=== PATIENT | female | born 1995 | race Caucasian/White ===

== ENCOUNTER 2021-03-24 15:54 | Emergency (ER) | payer OTHER, SELFPAY ==
[2021-03-24 18:38] VITALS: BP 116/74; PULSE 92; RESP 18; TEMP 36.6; O2SAT 100
--- NOTE | 2021-03-24 18:44 | ED.SKABFB ---
HPI - Skin/Abscess/Foreign Bdy General Chief complaint: Skin/Abscess/Foreign Body Stated complaint: Cyst on tail bone Time Seen by Provider: 03/24/21 18:40 Source: patient Mode of arrival: ambulatory Limitations: no limitations History of Present Illness HPI narrative: Patient comes in with what looks like pilonidal cyst that needs to be drained which is red, warm, and tender to touch. Pain has been severe, sharp, ongoing, and has not responded to OTC medications. It has been getting progressively more tender over the past few days. She comes in requesting an antibiotic. complaint: abscess/boil Onset (ago): day(s) Location: buttocks Severity: severe Quality: sharp Pain Consistency: constant Relieving factors: rest Exacerbating factors: other (sitting) Associated symptoms: denies other symptoms Treatments prior to arrival: attempted to drain pus at home Related Data Allergies Allergy/AdvReac Type Severity Reaction Status Date / Time No Known Allergies Allergy Unverified 04/26/18 13:34 Review of Systems Constitutional: Constitutional: Reports no additional constitutional complaints Eyes: Eyes: Reports no additional eye complaints ENT: Reports system reviewed and no additional complaints, except as documented Cardiovascular: Cardiovascular: Reports no additional cardiovascular complaints Respiratory: Respiratory: Reports no additional respiratory complaints Gastrointestinal: Gastrointestinal: Reports no additional gastrointestinal complaints Genitourinary: Genitourinary: Reports no additional female genitourinary complaints Musculoskeletal: Musculoskeletal: Reports no additional musculoskeletal complaints Integumentary/Breasts: Skin/Breast: Reports system reviewed and no additional complaints, except as docu Neurologic: Reports system reviewed and no additional complaints, except as documented Psychiatric: Psychiatric: Reports no additional psychiatric complaints Endocrine: Endocrine: Reports no additional endocrine complaints Hematologic/Lymphatic: Hematologic/Lymphatic: Reports no additional hematologic/lymphatic complaints Allergic/Immunologic: Allergic/Immunologic: Reports no additional allergic/immunologic complaints [facility] Past Medical History Medical History H/O drainage of abscess Pilonidal cyst Family History Family History Mother Hypertension Family history of diabetes mellitus in first degree relative Grandparent Diabetes mellitus Father Family history of diabetes mellitus in first degree relative Other Family history of coronary artery disease Social History Social History Smoking status: Smoker, status unknown Alcohol intake: never Exam Const: General: no acute distress Orientation/consciousness: patient oriented x3 HENMT: Head: normal to inspection Ears: external ears normal General nose exam: Normal external nose present Mouth: Yes Normal oral and palatal mucosa present Throat: posterior oropharynx normal Eyes: Conjunctivae: conjunctivae normal Neck: Neck: normal visual inspection Chest: Chest palpation & inspection: normal inspection of the chest Resp: Effort & Inspection: normal respiratory effort Auscultation: clear to auscultation bilaterally Cardio: Rate: regular rate Rhythm: regular rhythm GI: GI Palp: Yes Soft to palpation (nontender) Back/Spine/Pelvis: Back: no CVA tenderness Skin: General skin exam: normal color Other: Abscess at top of buttocks, which appears to be a pilonidal cyst. This appears to have a cellulitis around it and needs to be drained. Neuro: General: patient oriented x3 and moves all extremities Extrem: General: normal to inspection Psych: Appearance: grossly normal Mental Status: mental status grossly normal Thought content: Yes Normal thought content present Cour
== END 2021-03-24 18:58 | disposition home or self-care (01) ==
PROVIDERS: Emergency Provider Emergency Medicine
DX: L03.317 Cellulitis of buttock (principal); L02.31 Cutaneous abscess of buttock
CPT/HCPCS: 99283

== ENCOUNTER 2021-03-29 16:10 | Emergency (ER) | payer OTHER, SELFPAY ==
--- NOTE | 2021-03-29 16:33 | PC.NURSE ---
PT NOT IN WAITING ROOM.
--- NOTE | 2021-03-29 16:49 | PC.NURSE ---
PT NOT IN WAITING ROOM.
[2021-03-29 17:14] VITALS: BP 111/73; PULSE 79; RESP 18; TEMP 36.2; O2SAT 97
[2021-03-29] MEDS: LIDO 1%/EPINEPHRINE 1:100,000 20 ML VIAL 5 ML INFILTRATE (17:31)
--- NOTE | 2021-03-29 17:39 | ED.SKABFB ---
HPI - Skin/Abscess/Foreign Bdy General Source: patient Mode of arrival: ambulatory Limitations: no limitations History of Present Illness HPI narrative: This young woman comes in with complaints of pain in her previously diagnosed infected pilonidal cyst area at the apex of her buttocks. She has had continuing pain in her buttocks there for the past several days since she was discharged after refusing to allow me to drain the abscess when she was last seen. It sounds like the abscess partially drained, and then stopped draining. She comes in because of sharp, severe ongoing pain at that site for the last several days, not relieved by NSAIDs at home or by measures such as hot baths. complaint: abscess/boil Onset (ago): day(s) Tetanus up to date: yes Location: buttocks Severity: similar to previous episodes Quality: stabbing Pain Consistency: constant Relieving factors: none Exacerbating factors: movement Associated symptoms: denies other symptoms Treatments prior to arrival: attempted to drain pus at home Related Data Allergies Allergy/AdvReac Type Severity Reaction Status Date / Time No Known Allergies Allergy Unverified 04/26/18 13:34 Review of Systems Constitutional: Constitutional: Reports no additional constitutional complaints Eyes: Eyes: Reports no additional eye complaints ENT: Reports system reviewed and no additional complaints, except as documented Cardiovascular: Cardiovascular: Reports no additional cardiovascular complaints Respiratory: Respiratory: Reports no additional respiratory complaints Gastrointestinal: Gastrointestinal: Reports no additional gastrointestinal complaints Genitourinary: Genitourinary: Reports no additional female genitourinary complaints Musculoskeletal: Musculoskeletal: Reports no additional musculoskeletal complaints Integumentary/Breasts: Skin/Breast: Reports system reviewed and no additional complaints, except as docu Neurologic: Reports system reviewed and no additional complaints, except as documented Psychiatric: Psychiatric: Reports no additional psychiatric complaints Endocrine: Endocrine: Reports no additional endocrine complaints Hematologic/Lymphatic: Hematologic/Lymphatic: Reports no additional hematologic/lymphatic complaints Allergic/Immunologic: Allergic/Immunologic: Reports no additional allergic/immunologic complaints [facility] Past Medical History Medical History H/O drainage of abscess Pilonidal cyst Family History Family History Mother Hypertension Family history of diabetes mellitus in first degree relative Grandparent Diabetes mellitus Father Family history of diabetes mellitus in first degree relative Other Family history of coronary artery disease Social History Social History (Updated 03/29/21 @ 23:07 by Senthil Jasso MD) Smoking status: Current every day smoker Tobacco type: cigarettes Alcohol intake: never Exam Const: General: no acute distress Orientation/consciousness: patient oriented x3 HENMT: Head: normal to inspection Ears: external ears normal General nose exam: Normal external nose present Mouth: Yes Normal oral and palatal mucosa present Throat: posterior oropharynx normal Eyes: Conjunctivae: conjunctivae normal Neck: Neck: normal visual inspection Chest: Chest palpation & inspection: normal inspection of the chest Resp: Effort & Inspection: normal respiratory effort Auscultation: clear to auscultation bilaterally Cardio: Rate: regular rate Rhythm: regular rhythm GI: Auscultation: normal bowel sounds (soft non tender) Skin: General skin exam: normal color Other: she has what appears to be infected pilonidal cyst full of purulent fluid at apex of buttocks. cyst ia about the size of silver dollar in total surface area. Neuro: General: patient oriented x3, moves all extremities and no mening
[2021-03-29] MEDS: cefTRIAXone 1 GM VIAL IM (17:45)
== END 2021-03-29 18:06 | disposition home or self-care (01) ==
PROVIDERS: Emergency Provider Emergency Medicine
DX: L02.31 Cutaneous abscess of buttock (principal)
CPT/HCPCS: 10080; 96372; 99283; J0696

== ENCOUNTER 2021-06-17 10:18 | Emergency (ER) | payer OTHER, SELFPAY ==
[2021-06-17 11:10] VITALS: BP 95/62; PULSE 93; RESP 16; TEMP 36.5; O2SAT 99
--- NOTE | 2021-06-17 11:23 | ED.WOUNDLAC ---
HPI - Wound/Laceration General Chief Complaint: Skin/Abscess/Foreign Body Stated Complaint: cyst on rt thigh Source: patient Mode of arrival: ambulatory History of Present Illness HPI narrative: this is a 25-year-old female that presents with an abscess indurated nonfluctuant painful red warm to touch with no drainage on the right upper inner thigh started 3 to 4 days ago has had these in the past the patient currently has no fever or chills no shortness of breath no nausea vomiting. Onset (ago): day(s) Location: other ( right inner thigh) Extremity Location: Right: thigh ( firm abscess) Related Data Allergies Allergy/AdvReac Type Severity Reaction Status Date / Time No Known Allergies Allergy Unverified 04/26/18 13:34 Review of Systems Review of Systems: All systems reviewed & are unremarkable except as noted in HPI and below PMFSH Past Medical History Medical History H/O drainage of abscess Pilonidal cyst Family History Family History Mother Hypertension Family history of diabetes mellitus in first degree relative Grandparent Diabetes mellitus Father Family history of diabetes mellitus in first degree relative Other Family history of coronary artery disease Social History Social History Smoking status: Current every day smoker Tobacco type: cigarettes Alcohol intake: never Exam Const: General: no acute distress Orientation/consciousness: patient oriented x3 HENMT: Head: normal to inspection Eyes: Conjunctivae: conjunctivae normal Pupils: Equal, round and reactive pupils present Neck: Neck: normal visual inspection, no lymphadenopathy and no meningeal signs Chest: Chest palpation & inspection: normal inspection of the chest Resp: Effort & Inspection: normal respiratory effort Auscultation: clear to auscultation bilaterally Cardio: Rate: regular rate Rhythm: regular rhythm GI: GI Palp: Yes Soft to palpation Back/Spine/Pelvis: Back: no CVA tenderness Skin: General skin exam: normal color Other: Abscess indurated approximately 2cm in diameter warm red tender with no drainage nonfluctuant. Neuro: General: patient oriented x3 and moves all extremities Extrem: General: normal to inspection and no pedal edema Psych: Mental Status: mental status grossly normal Affect: normal affect Attitude: cooperative Course Course Emergency Course: Patient advised to use warm compress, ibuprofen and will send antibiotic to her pharmacy. Vital Signs Vital signs: Vital Signs Temperature 36.5 C 06/17/21 11:10 Pulse Rate 93 06/17/21 11:10 Respiratory Rate 16 06/17/21 11:10 Blood Pressure 95/62 L 06/17/21 11:10 Pulse Oximetry 99 06/17/21 11:10 Temperature 36.5 C 06/17/21 11:10 Pulse Rate 93 06/17/21 11:10 Respiratory Rate 16 06/17/21 11:10 Blood Pressure 95/62 L 06/17/21 11:10 Pulse Oximetry 99 06/17/21 11:10 Critical Care Time Critical Care Time Critical Care Time: No Discharge Plan Discharge Clinical Impression: Abscess of skin or subcutaneous tissue Qualifiers: Site of cutaneous abscess: other site Qualified Code(s): L02.818 - Cutaneous abscess of other sites Patient Disposition: Home, Self-Care Condition: Stable Instructions: Antibiotic Form, Abscess (ED) Additional Instructions: Take medicine as prescribed, can use warm compress to affected area along with ibuprofen as needed for pain and inflammation Prescriptions: New amoxicillin-pot clavulanate [Augmentin] 875-125 mg tablet 1 tablet PO Q12H Qty: 20 RF: 0 Follow-up/Referrals: UNKNOWN,DOCTOR [Primary Care Provider] - Time of Disposition: :
[2021-06-17 11:38] VITALS: PULSE 93; RESP 16
== END 2021-06-17 11:39 | disposition home or self-care (01) ==
PROVIDERS: Emergency Provider Emergency Medicine
DX: L02.818 Cutaneous abscess of other sites (principal)
CPT/HCPCS: 99283

== ENCOUNTER 2021-07-08 14:23 | Outpatient (CLI) | payer OTHER, SELFPAY ==
[2021-07-08 15:21] LABS: SARS-CoV-2 Ag Negative (Negative)
[2021-07-08 16:15] LABS: SARS-CoV-2 RNA PCR Negative (Negative)
== END 2021-07-08 14:24 | disposition home or self-care (01) ==
LOC: CHSLAB 14:27
PROVIDERS: PCP Nurse Practitioner Psychiatric/Mental Health; Visit Provider Nurse Practitioner Psychiatric/Mental Health
DX: Z20.822 Contact with and (suspected) exposure to COVID-19 (principal)
CPT/HCPCS: 87426; C9803; U0003; U0005

== ENCOUNTER 2022-01-08 11:16 | Outpatient (CLI) | payer OTHER, SELFPAY ==
[2022-01-08 12:10] LABS: Basophils Percent Auto 0.3 % (0.2-1.2); Eosinophils Absolute Auto 0.1 K/mm3 (0-0.3); Eosinophils Percent Auto 0.5 % (0-4.4); Hematocrit 31.8 % (37.0-47.0); Immature Granulocyte Absolute 0.08 K/mm3 (0.00-0.031); Immature Granulocyte Percent A 0.7 % (0-0.5); Lymphocytes Absolute Auto 1.87 K/mm3 (0.9-3.2); Lymphocytes Percent Auto 17.3 % (18.3-44.2); Mean Corpuscular HGB Conc 31.4 g/dl (32-36); Mean Corpuscular Hemoglobin 27.7 pg (26-34); Mean Corpuscular Volume 88.1 fl (80-100); Mean Platelet Volume 9.6 fl (7.4-10.4); Monocytes Absolute Auto 0.6 K/mm3 (0.1-0.6); Monocytes Percent Auto 5.5 % (2.6-8.5); Neutrophils Absolute Auto 8.2 K/mm3 (1.3-6.7); Neutrophils Percent Auto 75.7 % (45.5-73.1); Platelet Count Result 324 k/mm3 (150-375); Red Blood Count 3.61 M/mm3 (4.2-5.4); Red Cell Distribution Width 13.1 % (11.5-14.5); White Blood Count 10.8 K/mm3 (4.5-10.0)
[2022-01-08 13:13] LABS: HIV 1/2 Ab P24 Ag Result Negative (Negative)
== END 2022-01-08 11:17 | disposition home or self-care (01) ==
LOC: ANHLAB 11:20
PROVIDERS: Visit Provider Obstetrics & Gynecology
DX: Z34.90 Encounter for supervision of normal pregnancy, unspecified, unspecified trimester (principal); Z3A.00 Weeks of gestation of pregnancy not specified
CPT/HCPCS: 36415; 85025; 86703; G0432

== ENCOUNTER 2022-03-11 09:26 | Inpatient (IN) | payer OTHER, SELFPAY ==
[2022-03-11] VITALS (52 sets, daily range): BP systolic 78–109; BP diastolic 40–75; PULSE 25–98; RESP 12–18; TEMP 36.1–36.4; O2SAT 80–100; BMI 36.1
--- NOTE | 2022-03-11 08:52 | PM.IMHP ---
H&P: HPI History of Present Illness Date/Time: 03/11/22 08:52 26-year-old 1 para 1001 female at 39 weeks presents for repeat delivery. Prior term low-transverse . records are on the chart and she has had uncomplicated care. We also have discussed tubal ligation and she declines. Chief Complaint: Review of Systems Review of Systems: All systems reviewed & are unremarkable except as noted in HPI and below PMFSH Past Medical History Medical History H/O drainage of abscess HSV-2 infection Pilonidal cyst Surgical History Surgical History Delivery by section (06/28/19) primary c/s History of placement of ear tubes (~10/19/97) Family History Family History Mother Hypertension Family history of diabetes mellitus in first degree relative Grandparent Diabetes mellitus Father Family history of diabetes mellitus in first degree relative Other Family history of coronary artery disease Social History Social History Smoking status: Current every day smoker Tobacco type: cigarettes Alcohol intake: never Meds Home Medications and Allergies Home Medications Medication Instructions Recorded Confirmed Type vit with calcium-iron tablet PO 11/05/21 02/27/22 History fum-folic acid 27 mg-1 mg tablet valacyclovir 500 mg tablet 500 mg PO DAILY 11/05/21 02/27/22 History (Valtrex) Allergies Allergy/AdvReac Type Severity Reaction Status Date / Time No Known Allergies Allergy Verified 02/27/22 08:36 Exam Const: General: cooperative, healthy appearing and comfortable Resp: Effort & Inspection: normal respiratory effort Auscultation: clear to auscultation bilaterally Cardio: Rate: regular rate Rhythm: regular rhythm GI: Inspection: normal to inspection ( Uterus enlarged to 40cm with heart tones in the 140s.) Auscultation: normal bowel sounds : External Female Exam: normal external appearance Bimanual exam- vagina & uterus: enlarged Assessment and Plan Assessment and plan (1) 39 weeks gestation of : Code(s): Z3A.39 - 39 weeks gestation of Status: Acute (2) Previous delivery affecting : Code(s): O34.219 - Maternal care for unspecified type scar from previous delivery Status: Acute Assessment and Plan: proceed with repeat delivery.
--- NOTE | 2022-03-11 08:57 | WPDHPUPDATE1 ---
History and Physical Update Update Date/Time: 03/11/22 08:57 History and Physical has been reviewed, including an updated exam of the patient. There are NO changes in the patient's condition. Risks, benefits, and alternatives have been discussed and questions answered. Patient agrees to proceed with procedure.
[2022-03-11 10:14] LABS: Basophils Percent Auto 0.3 % (0.2-1.2); Eosinophils Absolute Auto 0.1 K/mm3 (0-0.3); Eosinophils Percent Auto 0.8 % (0-4.4); Hematocrit 32.8 % (37.0-47.0); Hemoglobin 9.7 g/dL (12.0-15.0); Immature Granulocyte Percent A 0.9 % (0-0.5); Lymphocytes Absolute Auto 1.81 K/mm3 (0.9-3.2); Lymphocytes Percent Auto 15.7 % (18.3-44.2); Mean Corpuscular HGB Conc 29.6 g/dl (32-36); Mean Corpuscular Hemoglobin 23.7 pg (26-34); Mean Corpuscular Volume 80.2 fl (80-100); Mean Platelet Volume 9.4 fl (7.4-10.4); Monocytes Absolute Auto 0.7 K/mm3 (0.1-0.6); Monocytes Percent Auto 6.1 % (2.6-8.5); Neutrophils Absolute Auto 8.8 K/mm3 (1.3-6.7); Neutrophils Percent Auto 76.2 % (45.5-73.1); Platelet Count Result 332 k/mm3 (150-375); Red Blood Count 4.09 M/mm3 (4.2-5.4); Red Cell Distribution Width 14.5 % (11.5-14.5); White Blood Count 11.6 K/mm3 (4.5-10.0)
[2022-03-11] MEDS: LACTATED RINGERS 1,000 ML 125 ML IV CONT ×2 (10:15→10:49)
--- NOTE | 2022-03-11 10:24 | LDADM ---
This patient, Katherin Hernandez, was admitted to Labor/Delivery/Recovery 119 on 03/11/22 at 09:26. Plans for labor, pain management and were discussed with patient. Patient/family oriented to hospital policies and general routines including ID bracelet, bed and alarms, visiting hours, pain management, procedures, bathroom and other care routines, personal items, smoking policy, room service/diet and guest tray routines, security routines, and visiting hours. Patient/Family are encouraged to report perceived risks to care and to ask questions if they do not understand what they are told or what they should do. See OBIX for further documentation.
--- NOTE | 2022-03-11 10:47 | WPDANESEPPF ---
Anes - Initial Pre Proc Eval Procedure: Operation Date: 03/11/22 12:00 Proposed Procedures p Repeat Section - Trey Acosta MD Date/Time: 03/11/22 10:47 Surgeon: Trey Acosta MD Pre Op Diagnosis: R C/S Patient Data Age: 26 Gender: F Height: 1.57 m Weight: 89.5 kg Last Vital Signs Pulse 87 03/11/22 10:30 BP 109/75 03/11/22 10:30 O2 Del Method Room Air 03/11/22 10:19 Allergies Allergy/AdvReac Type Severity Reaction Status Date / Time No Known Allergies Allergy Verified 02/27/22 08:36 Home Medications Medication Instructions Recorded Confirmed Type vit with calcium-iron 1 tablet PO DAILY 11/05/21 03/11/22 History fum-folic acid 27 mg-1 mg tablet valacyclovir 500 mg tablet 500 mg PO DAILY 11/05/21 03/11/22 History (Valtrex) Laboratory Tests 03/11/22 03/11/22 10:07 10:07 WBC 11.6 K/mm3 H K/mm3 (4.5-10.0) RBC 4.09 M/mm3 L M/mm3 (4.2-5.4) Hgb 9.7 g/dL L g/dL (12.0-15.0) Hct 32.8 % L % (37.0-47.0) MCV 80.2 fl fl (80-100) MCH 23.7 pg L pg (26-34) MCHC 29.6 g/dl L g/dl (32-36) RDW 14.5 % % (11.5-14.5) Plt Count 332 k/mm3 k/mm3 (150-375) MPV 9.4 fl fl (7.4-10.4) Immature Gran % (Auto) 0.9 % H % (0-0.5) Neut % (Auto) 76.2 % H % (45.5-73.1) Lymph % (Auto) 15.7 % L % (18.3-44.2) Beauregard % (Auto) 6.1 % % (2.6-8.5) Eos % (Auto) 0.8 % % (0-4.4) Baso % (Auto) 0.3 % % (0.2-1.2) Lymph # (Auto) 1.81 K/mm3 K/mm3 (0.9-3.2) Beauregard # (Auto) 0.7 K/mm3 H K/mm3 (0.1-0.6) Eos # (Auto) 0.1 K/mm3 K/mm3 (0-0.3) Baso # (Auto) 0.0 K/mm3 K/mm3 (0.0-0.1) Abs Immat Gran (auto) 0.10 K/mm3 H K/mm3 (0.00-0.031) Absolute Neuts (auto) 8.8 K/mm3 H K/mm3 (1.3-6.7) Absolute Nucleated RBC 0.0 K/mm3 K/mm3 (0.0-0.012) Nucleated RBC % 0.0 % % (0.0-0.2) RPR Pending Patient hx anesthesia problems: none Family hx anesthesia problems: none Results Review: All pre-operative results and documents have been reviewed as part of the pre-operative evaluation. [facility] Past Medical History Medical History H/O drainage of abscess HSV-2 infection Pilonidal cyst Surgical History Surgical History Delivery by section (06/28/19) primary c/s History of placement of ear tubes (~10/19/97) Family History Family History Mother Hypertension Family history of diabetes mellitus in first degree relative Grandparent Diabetes mellitus Father Family history of diabetes mellitus in first degree relative Other Family history of coronary artery disease Social History Social History Smoking packs per day: 0.5 Smoking cigarettes per day: 10.0 Years smoked: 15 Smoking pack-years: 7.50 Smoking status: Former smoker Tobacco type: cigarettes Second hand tobacco smoke exposure: Yes Alcohol intake: never Substance use: current Spiritual care concerns: No Anes - Eval Final PreProcedure Day of Procedure 03/11/22 10:47 Patient weight: obese Heart: regular rate and rhythm Lungs: clear to auscultation and normal air movement Airway: Mallampati scale class II Neurological: alert and oriented Last oral intake: >/= 8 hours ASA classification: II Emergent: no Anesthetic plan: proceed Anesthesia type and monitoring: regional spinal and standard monitoring Results Review: All pre-operative results and documents have been reviewed as part of the pre-operative evaluation. Informed Consent: The patient's anesthetic plan and its attendant risks and benefits were discussed with the patient/family/POA. Questions were solicited and ans
[2022-03-11] MEDS: FAMOTIDINE 20 MG/2 ML VIAL IV PUSH (11:15)
[2022-03-11] MEDS: METOCLOPRAMIDE HCL INJ 10 MG/2 ML VIAL IV PUSH (11:17)
[2022-03-11 11:23] LABS: Amphetamine Screen Urine Negative (Negative); Barbiturate Screen Urine Negative (Negative); Benzodiazepines Screen Urine Negative (Negative); Cannabinoid Screen Urine Positive (Negative); Cocaine Screen Urine Negative (Negative); Methadone Screen Urine Negative (Negative); Opiate Screen Urine Negative (Negative); Phencyclidine Screen Urine Negative (Negative)
[2022-03-11] MEDS: ceFAZolin 2 GM/D5W 50 ML 2 GM/50 ML BAG IVPB (11:23)
--- NOTE | 2022-03-11 12:08 | P.PCNOB_ITS ---
OB - Delivery Note Procedure Procedure: Procedures Operation Date: 03/11/22 12:00 <No data on this case meets the specified criteria> Events: Previous Delivery Prior to decision for section, ACOG/SMFM labor guidelines were considered and discussed with the patient and staff. Decision made to proceed with the section.: No Specimen: No Quantitative Blood Loss (ml): 445 Anesthesia type: Spinal Complications: None Narrative: Patient prepped and draped in usual manner for this procedure. Pfannenstiel incision was carried down to the fascia which was then extended bilaterally the of the skin incision. Superiorly and inferiorly dissected away from the rectus muscles and the peritoneum was readily entered. Bladder flap was developed and the uterus was scored with clear fluid noted vertex was delivered section naso- oropharynx rest baby was delivered. Cord clamped and cut and the placenta was removed manually. The uterus was cleared of membranes and clots and closed using 0 Monocryl in running interlocking manner from the right of midline and the rest of the incision was also approximated 0 Monocryl suture with good hemostasis noted. Uterus could not be exteriorized due to adhesions but was not necessary to adequately close the uterus. All subfascial tissue was noted be hemostatic the fascia was approximated using 0 Vicryl from the left angle midline and the right angle to midline good approximation and hemostasis noted. Subcutaneous tissue was approximated 0 plain suture and alexander were then used to approximate the skin edges. Past postoperative condition of mother and baby were both excellent. Baby Weeks of gestation at delivery: 39 Infant gender: Male Weight (pounds): 9 Weight (ounces): 5 score one minute: 9 score five minutes: 9 AMG Delivery Billing Delivery Delivery: Delivery Charge
[2022-03-11] MEDS: KETOROLAC 30 MG/ML VIAL (*BKC) 15 MG IV PUSH (12:46)
[2022-03-11] MEDS: OXYTOCIN 30 UNITS/NS 500 ML 30 UNITS/500 ML BAG 125 UNITS IV CONT (12:48)
[2022-03-11] MEDS: DEXTROSE 5%/0.45% SOD CHL 1,000 ML 125 ML IV CONT (16:40)
[2022-03-11] MEDS: ONDANSETRON INJ 4 MG/2 ML VIAL IV PUSH (17:17)
[2022-03-11] MEDS: KETOROLAC 30 MG/ML VIAL (*BKC) IV PUSH (17:17)
[2022-03-12 04:00] VITALS: BP 102/62; PULSE 71; RESP 16; TEMP 36.2
[2022-03-12] MEDS: IBUPROFEN 600 MG TABLET PO ×2 (04:09→11:36)
[2022-03-12] MEDS: HYDROcodone/acetaminophen (*CRX) 5-325 MG TABLET 1 TAB PO ×2 (04:09→11:36)
[2022-03-12 05:08] LABS: Basophils Absolute Auto 0.1 K/mm3 (0.0-0.1); Basophils Percent Auto 0.4 % (0.2-1.2); Eosinophils Absolute Auto 0.1 K/mm3 (0-0.3); Eosinophils Percent Auto 0.4 % (0-4.4); Hematocrit 27.6 % (37.0-47.0); Hemoglobin 7.8 g/dL (12.0-15.0); Immature Granulocyte Percent A 0.7 % (0-0.5); Lymphocytes Absolute Auto 2.11 K/mm3 (0.9-3.2); Mean Corpuscular HGB Conc 28.3 g/dl (32-36); Mean Corpuscular Hemoglobin 23.9 pg (26-34); Mean Corpuscular Volume 84.4 fl (80-100); Mean Platelet Volume 10.2 fl (7.4-10.4); Monocytes Absolute Auto 1.2 K/mm3 (0.1-0.6); Monocytes Percent Auto 8.3 % (2.6-8.5); Neutrophils Absolute Auto 10.6 K/mm3 (1.3-6.7); Neutrophils Percent Auto 75.2 % (45.5-73.1); Platelet Count Result 312 k/mm3 (150-375); Red Blood Count 3.27 M/mm3 (4.2-5.4); Red Cell Distribution Width 14.6 % (11.5-14.5); White Blood Count 14.1 K/mm3 (4.5-10.0)
--- NOTE | 2022-03-12 07:39 | WPDANLDPN2 ---
Anes-Prog Note L&D Date/Time: 03/12/22 07:39 Comfortable throughout: section Neuraxial method: spinal Epidural/Spinal procedure site: clean & non-tender Neuro status: Neuro function grossly intact. Cardiovascular status: normal Respiratory status: normal Airway patency: baseline Mental status: baseline Post-Op hydration status: normal Vital Signs: Last Vital Signs Temp 97.2 F L 03/12/22 04:00 Pulse 71 03/12/22 04:00 Resp 16 03/12/22 04:00 BP 102/62 03/12/22 04:00 Pulse Ox 100 03/11/22 15:00 O2 Del Method Room Air 03/11/22 14:45 Pain score (VAS): 10/28 I/O: Intake & Output 03/11/22 03/11/22 03/12/22 15:59 23:59 07:59 Intake Total 1200 950 300 Output Total 645 200 600 Balance 555 750 -300 Patient feedback: Patient satisfied with anesthetic care.
--- NOTE | 2022-03-12 07:42 | WPDANLDNPN2 ---
Anes-Prog Note L&D-Neuraxial Date/Time: 03/12/22 07:42 Neuraxial medications: intrathecal PF morphine Opiod-related complaints: none Patient feedback: Patient satisfied with post-operative pain management.
[2022-03-12 08:00] VITALS: PULSE 84; RESP 18; O2SAT 100
[2022-03-12] MEDS: POLYSACCHARIDE IRON COMPLEX 150 MG CAPSULE PO ×2 (08:07→17:02)
[2022-03-12] MEDS: DOCUSATE SODIUM 100 MG CAPSULE PO ×2 (08:07→17:02)
[2022-03-12] MEDS: SIMETHICONE 80 MG TAB.CHEW PO ×3 (08:07→17:02)
[2022-03-12] MEDS: MULTIVIT/MIN/PREN/FOL AC/IRON TABLET 1 TAB PO (08:07)
[2022-03-12] MEDS: HYDROcodone/acetaminophen (*CRX) 10-325 MG TABLET 1 TAB PO ×3 (08:08→20:31)
[2022-03-12 08:10] VITALS: BP 102/63; PULSE 84; RESP 18; TEMP 36.5; O2SAT 100
--- NOTE | 2022-03-12 10:52 | PM.OBDSVD ---
DS: Admitting Diagnosis Discharge Date 03/13/2022 Admitting Diagnosis OB - DS: Summary OB Procedures : None OB Procedures Intrapartum: OB Procedures: : None Peripartum Data Procedures: Procedures Operation Date: 03/11/22 12:00 Actual Procedure Side Surgeon p Section Trey Acosta MD Time Spent with Patient Time attestation: Total time spent providing and/or coordinating discharge services: DS: Data Data Completed and Pending Labs on day of discharge: Labs from last 24 hours 03/12/22 03/11/22 03/11/22 04:07 10:54 10:07 WBC 14.1 H RBC 3.27 L Hgb 7.8 L Hct 27.6 L MCV 84.4 D MCH 23.9 L MCHC 28.3 L RDW 14.6 H Plt Count 312 MPV 10.2 Immature Gran % (Auto) 0.7 H Neut % (Auto) 75.2 H Lymph % (Auto) 15.0 L Kaufman % (Auto) 8.3 Eos % (Auto) 0.4 Baso % (Auto) 0.4 Lymph # (Auto) 2.11 Kaufman # (Auto) 1.2 H Eos # (Auto) 0.1 Baso # (Auto) 0.1 Abs Immat Gran (auto) 0.10 H Absolute Neuts (auto) 10.6 H Absolute Nucleated RBC 0.0 Nucleated RBC % 0.0 Urine Opiates Screen Negative Urine Methadone Screen Negative Ur Barbiturates Screen Negative Ur Phencyclidine Scrn Negative Ur Amphetamine Screen Negative U Benzodiazepines Scrn Negative Urine Cocaine Screen Negative U Cannabinoids Screen Positive A Blood Type A Positive Antibody Screen Negative Discharge Plan Discharge Discharging Clinician: Trey Acosta Patient Disposition: Home, Self-Care Activity: as tolerated Diet: as tolerated Wound Care Instructions: incision open to air Patient Instructions: Antibiotic Form Stand Alone Forms: General Discharge Information Follow-up/Referrals: Trey Acosta MD [Physician] - 3 Weeks Discharge Medications: New hydrocodone-acetaminophen 5-325 mg Tablet 1 tablet PO Q3H PRN (Reason: Moderate Pain (4-6)) Qty: 20 0RF ibuprofen 600 mg Tablet 600 mg PO Q6H PRN (Reason: Cramping) Qty: 30 0RF Continued valacyclovir [Valtrex] 500 mg tablet 500 mg PO DAILY vit-iron fum-folic ac 27-1 mg tablet 1 tablet PO DAILY Date of admission: 03/11/22 09:26 Primary Care Provider: UNKNOWN,DOCTOR Admitting Provider: Trey Acosta Attending physician on admission: Trey Acosta Condition: Stable
[2022-03-12 14:32] VITALS: PULSE 84; RESP 18; O2SAT 100
[2022-03-12 14:32] LABS: Rapid Plasma Reagin Non-Reactive (NonReactive)
--- NOTE | 2022-03-12 15:30 | PC.NURSE ---
[id number] Introductions were made, then consulted with patient to assess needs related to . Mother led the conversation with her experience feeding her so far and states she is independently but feels baby isn't satisfied , so she supplemented with formula. is not in the room at this time. Mother states she is part of the WIC program and will get formula. Primary RN comes into the room with and states is very sleepy . Infant is post circumcision and is sleepy. Dr. Hill visited while RN was in the room and educated mother on the risk of using marijuana and . Mother business loan processor will call for assistance with . 1315 - is in the open crib in the room with the parents. Parents are getting ready to eat. Mother voiced she will call when it is time to feed infant. Mother states she is latched infant on her own for 5 min on each side and did not call due to infant wasn't interested. Reviewed responsive feeding and how to watch for early feeding signs, frequency of feeding on demand about every 8-12 times in 24 hours (every 2-3 hours), milk production, duration of feeding, signs of adequate intake/output and how to record on the feeding sheet. Reviewed positioning and ear, shoulder, hip alignment, supporting the breast, asymmetrical latch (off-center), and leading with the chin with a big open side gape. Nipple care reviewed with optimal latch and good positioning. Reviewed good handwashing when or touching the breast/nipples to prevent infection. Discussed pumping every 3 hours 1-2 times at night for good milk production. Resources used to facilitate learning were used with the visual handouts/mom and baby guide. Mother voiced understanding of responsive feedings, stimulating with skin to skin, hand expressed colostrum, touch, talking to to encourage if it has been 2 -3 hours since the start of the last , to call if infant does not latch or there is discomfort with . Reported to the primary RN.
[2022-03-12 20:10] VITALS: BP 92/56; PULSE 84; RESP 16; TEMP 36.7; O2SAT 97
[2022-03-13] MEDS: IBUPROFEN 600 MG TABLET PO ×2 (00:22→08:08)
[2022-03-13] MEDS: HYDROcodone/acetaminophen (*CRX) 10-325 MG TABLET 1 TAB PO (00:23)
[2022-03-13] MEDS: HYDROcodone/acetaminophen (*CRX) 5-325 MG TABLET 1 TAB PO ×3 (03:52→13:00)
[2022-03-13 08:00] VITALS: PULSE 80; RESP 18; O2SAT 100
[2022-03-13] MEDS: DOCUSATE SODIUM 100 MG CAPSULE PO (08:07)
[2022-03-13] MEDS: POLYSACCHARIDE IRON COMPLEX 150 MG CAPSULE PO (08:07)
[2022-03-13] MEDS: MULTIVIT/MIN/PREN/FOL AC/IRON TABLET 1 TAB PO (08:08)
[2022-03-13 08:25] VITALS: BP 98/64; PULSE 80; RESP 18; TEMP 36.3; O2SAT 100
--- NOTE | 2022-03-13 10:59 | PC.NURSE ---
Patient was given the opportunity to view the discharge video Mother & Baby Care, The First Two Weeks and to ask questions. Patient declined viewing the video and has been given the mother/baby guide for home reference.
--- NOTE | 2022-03-13 15:08 | PCCCNOTE ---
Care Coordination met with pt. this morning to discuss discharge planning. Pt.'s current D/C plan is to return home with baby and her 2year old son. Pt. states FOB lives down the street and is supportive, her mother also lives locally and is supportive. Pt. has everything needed to safely bring baby home. She will attempt to breast feed and supplement with formula as needed. Pt. does have an open DCFS case, her case checker is Lara Buckner . Pt. has an appointment to meet with her knit goods cutter hand on 03/21/22. Pt. aware she tested positive for THC, she states she used marijuana to assist with her anxiety throughout the . Baby's urine drug screen came back negative and his meconium is pending. CC reported of baby and drug use to pt.'s case checker. Per Lara, pt. is okay to D/C. CC completed DCFS case report (intake #[id number]). Case report taken as information. No further need for CC services.
--- NOTE | 2022-03-14 08:57 | PM.OBDSVD ---
DS: Admitting Diagnosis Discharge Date 03/13/22 Admitting Diagnosis OB - DS: Summary OB Procedures : None OB Procedures Intrapartum: OB Procedures: : None Peripartum Data Procedures: Procedures Operation Date: 03/11/22 12:00 Actual Procedure Side Surgeon p Section Trey Acosta MD Time Spent with Patient Time attestation: Total time spent providing and/or coordinating discharge services: Discharge Plan Discharge Discharging Clinician: Trey Acosta Patient Disposition: Home, Self-Care Activity: as tolerated Diet: as tolerated Wound Care Instructions: incision open to air Discharge Instructions: Education: Mom and Baby Guide Given to: Mother Follow-Up: Call your delivering provider's office for an appointment to be seen in: 1 week for staple removal Mom and baby should come to the [facility] for the follow-up appointment. Appointment Date/Time: Tuesday, March 15, 2022 at 10:00 a.m. What to expect at your follow-up visit: Blood Pressure Check Physical Assessment Call [phone] if you are unable to keep your appointment time. BREAST CARE: * Wear a snug supportive bra. * For engorgement discomfort: Breast Feeding: * Apply warm moist washcloths * Express milk as needed to relieve engorgement * Wear loose clothing Bottle Feeding: * May apply ice packs * For sore nipples: * Identify correct latch-on * Apply warm moist washcloths before and after nursing * Air dry nipples after nursing * May apply Lansinoh cream to nipples ABDOMINAL INCISION: (if applicable) * Allow incision to air dry * Do NOT use lotions for powders on your incision * When showering, allow soap and water to run over the incision, but do not wash incision EPISIOTOMY/PERINEAL CARE: * Until bleeding stops, use your laura bottle after urinating * Change your pad frequently throughout the day * You may take sitz baths several times a day (fill your bathtub with warm water and soak for 20 minutes.) Do NOT bathe in the water * No tub baths until seen by your physician - You may shower ACTIVITY: * Rest as much as possible. * Do not exercise or lift anything heavier than your baby (such as laundry or other children.) * Avoid stairs or driving as much as possible. * Do not put anything into the vagina. No douching, tampons, or sexual activity until seen by physician. NOTIFY PHYSICIAN IF YOU HAVE ANY QUESTIONS OR IF ANY OF THE FOLLOWING SYMPTOMS OCCUR: * If your incision becomes red, swollen, or more painful than what you have experienced in the hospital. * If your vaginal bleeding becomes foul smelling. * If your vaginal bleeding becomes more heavy than a period or if your bleeding changes from pink to bright red. However, you may pass an occasional walnut-sized clot once or twice for the first week . * If you experience a sharp, shooting pain in you calves. * If you discover a hard, reddened area on your breast or if you experience flu-like symptoms. DIET: * Eat regular, well-balanced meals. * Drink plenty of fluids daily. If , drink to thirst. Patient Instructions: Antibiotic Form Stand Alone Forms: General Discharge Information Follow-up/Referrals: Trey Acosta MD [Physician] - 3 Weeks Discharge Medications: New hydrocodone-acetaminophen 5-325 mg Tablet 1 tablet PO Q3H PRN (Reason: Moderate Pain (4-6)) Qty: 20 0RF ibuprofen 600 mg Tablet 600 mg PO Q6H PRN (Reason: Cramping) Qty: 30 0RF Continued valacyclovir [Valtrex] 500 mg tablet 500 mg PO DAILY vit-iron fum-folic ac 27-1 mg tablet 1 tablet PO DAILY Date of admission: 03/11/22 09:26 Primary Care Provider: UNKNOWN,DOCTOR Admitting Provider: Trey Acosta Attending physician on admission: Calvin Acosta
== END 2022-03-13 14:55 | disposition home or self-care (01) | DRG 540 ==
LOC: ANHLDR 09:59 → ANHOB2 14:49
PROVIDERS: Admitting Provider Obstetrics & Gynecology; Visit Provider Obstetrics & Gynecology
PROC: 10D00Z1 Extraction of Products of Conception, Low, Open Approach (ICD-10-PCS; CPT 59514; principal; 2022-03-11 12:00)
DX: O34.211 Maternal care for low transverse scar from previous cesarean delivery (principal); O98.52 Other viral diseases complicating childbirth; O99.334 Smoking (tobacco) complicating childbirth; B00.9 Herpesviral infection, unspecified; F17.210 Nicotine dependence, cigarettes, uncomplicated; O99.62 Diseases of the digestive system complicating childbirth; K66.0 Peritoneal adhesions (postprocedural) (postinfection); Z3A.39 39 weeks gestation of pregnancy; Z37.0 Single live birth
CPT/HCPCS: 36415; 80307; 85025; 86592; 86850; 86900; 86901; A9270; J0690; J1885; J2274; J2370; J2405; J2590; J2765; J7120

== ENCOUNTER 2022-04-22 18:01 | Emergency (ER) | payer OTHER, SELFPAY ==
[2022-04-22 18:15] VITALS: BP 89/69; PULSE 121; RESP 18; TEMP 37.7; O2SAT 97
[2022-04-22 18:32] VITALS: BP 109/57; PULSE 111; RESP 18; TEMP 37.2; O2SAT 100
--- NOTE | 2022-04-22 19:15 | ED.FEVER ---
HPI - Fever General Chief Complaint: Fever Stated Complaint: fever - cyst lanced three days ago Time Seen by Provider: 04/22/22 18:54 History of Present Illness HPI Narrative: 26-year-old female who is 1 month presented to the emergency department for evaluation of a pilonidal cyst that was drained approximately 3 days ago. Patient states that she had the cyst drained and it was packed. Patient did have packing removed. Patient states she has been running a low-grade fever and was concerned for infection concerned due to the fact that she was not started on antibiotics. Patient denies any worsening pain denies any drainage from the site. Related Data Home Medications Medication Instructions Recorded Confirmed valacyclovir 500 mg tablet 500 mg PO DAILY 11/05/21 04/07/22 (Valtrex) Allergies Allergy/AdvReac Type Severity Reaction Status Date / Time No Known Allergies Allergy Verified 04/07/22 15:58 Review of Systems Review of Systems: CONSTITUTIONAL: Denies fever, chills, or sweats. EYES: Denies visual changes, redness, or discharge. ENT: Denies rhinorrhea, congestion, sore throat, or otalgia. CARDIOVASCULAR: Denies chest pain, palpitations, or edema. RESPIRATORY: Denies cough or dyspnea. GASTROINTESTINAL: Denies abdominal pain, nausea, vomiting, or diarrhea. GENITOURINARY: Denies dysuria or hematuria. SKIN: See HPI MUSCULOSKELETAL: Denies back pain, joint pain, or myalgia. NEUROLOGIC: Denies headache, numbness, or weakness. [facility] Past Medical History Medical History (Updated 04/23/22 @ 00:00 by Fanny Laughlin) H/O drainage of abscess HSV-2 infection Pilonidal cyst Surgical History Surgical History (Updated 04/07/22 @ 16:02 by SYDNEY Gastelum) Delivery by section (06/28/19) primary c/s Delivery by section (03/11/22) rpt c/s History of placement of ear tubes (~10/19/97) Family History Family History Mother Hypertension Family history of diabetes mellitus in first degree relative Grandparent Diabetes mellitus Father Family history of diabetes mellitus in first degree relative Other Family history of coronary artery disease Social History Social History Smoking packs per day: 0.5 Smoking cigarettes per day: 10.0 Years smoked: 15 Smoking pack-years: 7.50 Smoking status: Former smoker Tobacco type: cigarettes Second hand tobacco smoke exposure: Yes Alcohol intake: never Substance use: current Spiritual care concerns: No Exam Narrative: APPEARANCE: Well appearing, no pain, no distress, well-nourished. HEAD: normocephalic, atraumatic. EYES: PERRLA/EOMI, conjunctivae clear. NOSE: Normal no drainage NECK: Supple. No adenopathy, no masses. RESPIRATORY: Airway patent, respirations nonlabored. Clear to auscultation bilaterally, no rales, rhonchi, wheezing. CARDIOVASCULAR: Regular rate and rhythm without murmurs rubs or gallops. ABDOMINAL: Soft, nontender, nondistended, normal bowel sounds MUSCULOSKELETAL: Moves all extremities. Strength/ROM intact, No edema, No calf tenderness. NEURO: Alert. Cranial nerves II through XII intact. Grossly intact SKIN: Healing pilonidal cyst. No tenderness to palpation. No surrounding erythema. No active drainage. PSYCHIATRIC: Normal affect/mood. Course Course Emergency Course: Patient declined labs. Patient states she needed to leave the emergency department due to a family emergency. Patient was signed out AMA. Vital Signs Vital signs: Vital Signs Temperature 100 F H 04/22/22 18:15 Pulse Rate 121 H 04/22/22 18:15 Respiratory Rate 18 04/22/22 18:15 Blood Pressure 89/69 L 04/22/22 18:15 Pulse Oximetry 97 04/22/22 18:15 Oxygen Delivery Room Air 04/22/22 18:15 Temperature 98.9 F 04/22/22 18:32 Pulse Rate 111 H 04/22/22 18:32 Respiratory Rate 18 04/22/22
--- NOTE | 2022-04-22 19:33 | PC.NURSE ---
PT states she has a family emergency and must leave immediately. Risks explained to pt. Verbalizes understanding. JOSE LUIS Calix made aware.
== END 2022-04-22 19:35 | disposition left against medical advice (07) ==
PROVIDERS: Emergency Provider Emergency Medicine
DX: L05.91 Pilonidal cyst without abscess (principal); Z87.891 Personal history of nicotine dependence
CPT/HCPCS: 99281

== ENCOUNTER 2022-06-10 14:43 | Outpatient (CLI) | payer OTHER, SELFPAY ==
[2022-06-10 15:36] LABS: Beta HCG Quantitative < 2.39 mIU/ML
== END 2022-06-10 14:44 | disposition home or self-care (01) ==
LOC: ANHLAB 14:49
PROVIDERS: Visit Provider Obstetrics & Gynecology
DX: N92.6 Irregular menstruation, unspecified (principal)
CPT/HCPCS: 36415; 84702

== ENCOUNTER 2023-06-17 09:16 | Emergency (ER) | payer OTHER, SELFPAY ==
[2023-06-17 09:43] VITALS: BP 94/56; PULSE 85; RESP 16; TEMP 36.3; O2SAT 100
--- NOTE | 2023-06-17 10:02 | ED.BACK ---
HPI - Back Pain/Injury General Chief Complaint: Back Pain/Injury Stated Complaint: Lower Back Pain Source: patient Mode of arrival: ambulatory Limitations: no limitations History of Present Illness HPI Narrative: 27-year-old female presented for complaint mid lower back pain for 2 days. She states this started after she was playing in the pool with the children, stating she was throwing 1 of them a lot and may have pulled something. Later that evening she felt it was more tender when she put a child to bed. Took Tylenol. Denies radiating pain to the legs, numbness, tingling, weakness of the lower extremities, change in gait, or loss of bowel or bladder. Related Data Home Medications Medication Instructions Recorded Confirmed etonogestrel 68 mg subdermal 1 implant subdermal ONCE 06/11/22 06/17/23 implant (Nexplanon) Allergies Allergy/AdvReac Type Severity Reaction Status Date / Time No Known Allergies Allergy Verified 06/17/23 09:26 Review of Systems Review of Systems: CONSTITUTIONAL: Denies body aches, fever, chills EYES: Denies visual changes CARDIOVASCULAR: Denies chest pain, palpitations, or edema. RESPIRATORY: Denies cough or dyspnea. GASTROINTESTINAL: Denies abdominal pain, nausea, vomiting, or diarrhea. SKIN: Denies rash, itching, or wounds. MUSCULOSKELETAL: reports back pain NEUROLOGIC: Denies headache, numbness, tingling, or weakness. All systems reviewed & are unremarkable except as noted in HPI and below PMFSH Past Medical History Medical History H/O drainage of abscess HSV-2 infection Insertion of Nexplanon Insertion of Nexplanon (06/11/22) nexplanon insertion left arm Irregular periods Pilonidal cyst Surgical History Surgical History Delivery by section (06/28/19) primary c/s Delivery by section (03/11/22) rpt c/s History of placement of ear tubes (~10/19/97) Family History Family History Mother Hypertension Family history of diabetes mellitus in first degree relative Grandparent Diabetes mellitus Father Family history of diabetes mellitus in first degree relative Other Family history of coronary artery disease Social History Social History Smoking packs per day: 1 Smoking cigarettes per day: 20.0 Years smoked: 15 Smoking pack-years: 15.00 Smoking status: Current every day smoker Tobacco type: cigarettes Second hand tobacco smoke exposure: Yes Alcohol intake: never Substance use: current Substance use type: marijuana Other substance usage details: vaping pen Lack of Transportation: No Lack of Food: Never True Current Housing: I Have Housing Concerned About Future Housing: No Difficulty Paying Gas/Electric Bills: No Difficulty Paying for Meds: No Currently Unemployed: No Education: High School Diploma/GED Difficulty w/ Childcare or Family Care: No Living arrangements: other Additional living arrangements comments: single Occupation/Education: occupation Additional occupation/education comments: [employer] Gender identity (if verbalized by the patient): Female Sexual Orientation (if Verbalized by the Patient): Straight or Heterosexual Spiritual care concerns: No Comments At time of signature, I have reviewed and agree with nursing past medical, surgical, social and family history unless otherwise noted. Please see nursing chart for further information. There is no relevant family history pertinent to the presenting complaint Exam Narrative: GENERAL: Well-appearing, well-nourished, and in no acute distress. HEAD: Normocephalic, atraumatic. EYES: conjunctivae clear NECK: Supple. full ROM CHEST: Speaks in full sentences. No respiratory distress. HEART: Regular r
== END 2023-06-17 10:05 | disposition home or self-care (01) ==
PROVIDERS: Emergency Provider Nurse Practitioner Family
DX: S39.012A Strain of muscle, fascia and tendon of lower back, initial encounter (principal); X50.3XXA Overexertion from repetitive movements, initial encounter; Y93.11 Activity, swimming
CPT/HCPCS: 99213; G0463

== ENCOUNTER 2024-07-24 01:21 | Emergency (ER) | payer MEDICAID, SELFPAY ==
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
[2024-07-24 01:43] VITALS: BP 120/62; PULSE 88; RESP 18; TEMP 37; O2SAT 98
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
[2024-07-24] MEDS: IBUPROFEN 600 MG TABLET PO (02:02)
[2024-07-24 02:42] LABS: Basophils Absolute Auto 0.05 K/mm3 (0.00-0.10); Basophils Percent Auto 0.3 % (0.0-1.0); Eosinophils Absolute Auto 0.05 K/mm3 (0.02-0.50); Eosinophils Percent Auto 0.3 % (1.0-6.0); Hematocrit 38.8 % (35.0-49.0); Immature Granulocyte Absolute 0.08 K/mm3 (0.00-0.00); Immature Granulocyte Percent A 0.5 % (0.0-0.0); Lymphocytes Absolute Auto 2.43 K/mm3 (1.10-4.50); Lymphocytes Percent Auto 14.9 % (18.0-42.0); Mean Corpuscular HGB Conc 30.9 g/dL (32-36); Mean Corpuscular Hemoglobin 26.1 pg (27.0-31.0); Mean Corpuscular Volume 84.5 fL (78.0-102.0); Mean Platelet Volume 9.1 fl (9.2-11.8); Monocytes Absolute Auto 0.91 K/mm3 (0.10-0.90); Monocytes Percent Auto 5.6 % (2.0-11.0); Neutrophils Absolute Auto 12.76 K/mm3 (1.70-7.20); Neutrophils Percent Auto 78.4 % (50.0-70.0); Platelet Count Result 451 K/mm3 (150-420); Red Blood Count 4.59 M/mm3 (4.20-5.40); Red Cell Distribution Width 15.6 % (11.6-14.4); White Blood Count 16.3 K/mm3 (4.8-10.8)
[2024-07-24 03:04] LABS: Alanine Aminotransferase 16 U/L (14-59); Albumin Level 3.7 g/dL (3.4-5.0); Alkaline Phosphatase 68 U/L (46-116); Anion Gap 10 mmol/L (4-12); Aspartate Amino Transferase 19 U/L (15-37); Bilirubin,Total 0.2 mg/dL (0.00-1.00); Blood Urea Nitrogen 12 mg/dL (7-18); Calcium 8.2 mg/dL (8.5-10.1); Carbon Dioxide 25 mmol/L (21-32); Chloride 105 mmol/L (98-108); Estimated CRCL calculation 73 ml/min; Estimated Glomerular Filt Rate > 60; Glucose 102 mg/dL (70-99); Osmolality Calculated 289 mOsm/kg (285-295); Potassium 3.7 mmol/L (3.5-5.1); Sodium 140 mmol/L (136-145); Total Protein 7.9 g/dL (6.4-8.2)
[2024-07-24 03:23] VITALS: BP 133/85; PULSE 82; RESP 18; O2SAT 98
== END 2024-07-24 03:23 | disposition home or self-care (01) ==
LOC: CHSED 02:49
PROVIDERS: Emergency Provider Emergency Medicine
DX: S52.502A Unspecified fracture of the lower end of left radius, initial encounter for closed fracture (principal); F17.210 Nicotine dependence, cigarettes, uncomplicated; Y09 Assault by unspecified means
CPT/HCPCS: 29125; 36415; 73090; 73110; 80053; 85025; 99283; A9270

== ENCOUNTER 2024-07-27 18:13 | Outpatient (NON) | payer OTHER, SELFPAY ==
[2024-07-27 18:36] LABS: Add Urine Microscopic? YES; Appearance Urine Clear (Clear); Bilirubin Urine Negative (Negative); Blood Urine Trace-intact (Negative); Color Urine Light Yellow (Yellow); Glucose Urine UA Negative (Negative); Ketones Urine Negative (Negative); Leukocyte Esterase Ur Trace LEU/UL (Negative); Nitrate Urine Positive (Negative); Protein Urine Negative (Negative); Urobilinogen Urine 0.2 mg/dL (0.2-1.0)
[2024-07-27 18:45] LABS: Bacteria Urine 3+ /hpf; RBC Urine 0-2 /hpf (0-2); Squamous Epithelial Cell Urine Rare /hpf (Few); WBC Urine 0-3 /hpf (0-3)
== END 2024-07-27 18:14 | disposition home or self-care (01) ==
LOC: CHSLAB 18:18
PROVIDERS: Visit Provider Nurse Practitioner Family
DX: R39.9 Unspecified symptoms and signs involving the genitourinary system (principal); R82.90 Unspecified abnormal findings in urine
CPT/HCPCS: 81001; 81513; 87077; 87086; 87088; 87186

== ENCOUNTER 2024-08-08 13:47 | Outpatient (CLI) | payer OTHER, SELFPAY ==
--- NOTE | ~2024-08-08 | XR_ITS ---
Left wrist Technique: PA, oblique, lateral, and ulnar deviation views were obtained. Clinical History: Fracture follow-up COMPARISON: 07/24/2024 Findings: Mild progressive interval healing of transverse fracture the distal radius. Alignment is un changed. No new fracture or dislocation. Soft tissues are unremarkable. Impression: Mild progressive healing of distal radial fracture. Stable alignment. Reviewed, dictated and finalized at location . Impression: Mild progressive healing of distal radial fracture. Stable alignment.
== END 2024-08-08 13:48 | disposition home or self-care (01) ==
LOC: ANHBWCIMG 13:49
PROVIDERS: PCP Nurse Practitioner Family; Visit Provider Orthopaedic Surgery
DX: S52.592D Other fractures of lower end of left radius, subsequent encounter for closed fracture with routine healing (principal); X58.XXXD Exposure to other specified factors, subsequent encounter
CPT/HCPCS: 73110

== ENCOUNTER 2024-09-19 13:20 | Outpatient (CLI) | payer OTHER, SELFPAY ==
--- NOTE | ~2024-09-19 | XR_ITS ---
XR wrist LT min 3V Ordering provider: Luiz Yost MD History: . M25.532 - Pain in left wrist - FOLLOW UP . Comparison: August 08, 2024 FINDINGS: BONES: Healing distal metaphysis of the left radius unchanged from previous examination in alignment. Status post removal of the cast. No definite scaphoid fracture. JOINT SPACES: Well maintained. SOFT TISSUES: Normal. IMPRESSION: Healing distal left radial fracture. Status post removal of the cast. Reviewed, dictated and finalized at location A. STEN REFINER
== END 2024-09-19 13:21 | disposition home or self-care (01) ==
LOC: ANHBWCLAB 13:22 → ANHBWCIMG 13:24
PROVIDERS: PCP Nurse Practitioner Family; Visit Provider Orthopaedic Surgery
DX: S52.502D Unspecified fracture of the lower end of left radius, subsequent encounter for closed fracture with routine healing (principal); X58.XXXD Exposure to other specified factors, subsequent encounter
CPT/HCPCS: 73110

== ENCOUNTER 2025-05-01 22:01 | Emergency (ER) | payer OTHER, SELFPAY ==
[2025-05-01 22:32] VITALS: BP 107/70; PULSE 99; RESP 20; TEMP 36.4; O2SAT 100
--- NOTE | 2025-05-02 01:09 | ED.WOUNDLAC ---
HPI - Wound/Laceration General Chief Complaint: Wound/Laceration <Sherly Ferrer PA-C - Last Filed: 05/02/25 02:06> Stated Complaint: R ear [id number] corner of wall <Sherly Ferrer PA-C - Last Filed: 05/02/25 02:06> Time Seen by Provider: 05/02/25 00:29 <Sherly Ferrer PA-C - Last Filed: 05/02/25 02:06> History of Present Illness HPI narrative: 29-year-old female presents to the emergency department for laceration to her right ear that occurred prior to arrival. Patient states she tripped over her child's toy and hit her right auricle on the corner of the wall and caused a laceration. She denies other injuries acquired. Bleeding is controlled. Tdap is reportedly up-to-date. <Sherly Ferrer PA-C - Last Filed: 05/02/25 02:06> Related Data Home Medications: Home Medications ?Medication ?Instructions ?Recorded ?Confirmed ?Last Taken ?Type etonogestrel 68 mg subdermal 1 implant subdermal ONCE 06/11/22 09/19/24 Unknown History implant (Nexplanon) <Sherly Ferrer PA-C - Last Filed: 05/02/25 02:06> Allergies/Adverse Reactions: Allergies Allergy/AdvReac Type Severity Reaction Status Date / Time No Known Allergies Allergy Verified 05/01/25 22:35 <Sherly Ferrer PA-C - Last Filed: 05/02/25 02:06> Review of Systems Review of Systems: All systems reviewed & are unremarkable except as noted in HPI and below <Sherly Ferrer PA-C - Last Filed: 05/02/25 02:06> [facility] Past Medical History Medical History: Medical History Fracture of left distal radius Encounter for screening examination for sexually transmitted disease Tobacco abuse Encounter to establish care IBS (irritable bowel syndrome) Migraines Anxiety 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 Insertion of Nexplanon (06/11/22) nexplanon insertion left arm Insertion of Nexplanon Irregular periods 39 weeks gestation of Sinusitis HSV-2 infection H/O drainage of abscess Pilonidal cyst <Sherly Ferrer PA-C - Last Filed: 05/02/25 02:06> Surgical History Surgical History: Surgical History Delivery by section (03/11/22) rpt c/s History of placement of ear tubes (~10/19/97) Delivery by section (06/28/19) primary c/s <Sherly Ferrer PA-C - Last Filed: 05/02/25 02:06> Family History Family History: Family History Mother Hypertension Family history of diabetes mellitus in first degree relative Diabetes mellitus Depression Grandparent Diabetes mellitus Father Family history of diabetes mellitus in first degree relative Alcoholism Diabetes mellitus Depression Grandparent Diabetes mellitus Cerebrovascular accident Other Family history of coronary artery disease <Sherly Ferrer PA-C - Last Filed: 05/02/25 02:06> Social History Social History: Social History Years smoked: 15 Smoking status: Current every day smoker Tobacco type: cigarettes Second hand tobacco smoke exposure: Yes Alcohol intake: current Alcohol use details: 2 a month Substance use: current Substance use type: marijuana Other substance usage details: daily Do You Feel Safe in your Home?: Yes Lack of Transportation: No Lack of Food: Never True Current Housing: I Have Housing Concerned About Future Housing: No Difficulty Paying Gas/Electric Bills: No Difficulty Paying for Meds: No Currently Unemployed: No Education: High School Diploma/GED Difficulty w/ Childcare or Family Care: No Living arrangements: other Additional living arrangements comments: single Occupation/Education: occupation Additional occupation/education comments: Loves gas [employer] Gender identity (if verbalized by the patient): Female Sexual Orientation (if Verbalized by the Patient): Straight or Heterosexual Spiritual care concerns: No <Sherly Ferrer PA-C - Last Filed: 05/02/25 02:06> Exam Narrative: GENERAL: Well-appearing, well-nourished, and in no acute distress. HEAD: Normocephalic, atraumatic. EYES: EOMI. ENT: Nares clear, no rhinorrhea or epistaxis. Mucous membranes moist. Laceration through the right helix involving the cartilage with superficial laceration along the inferior helix with no cartilage involvement. Bleeding controlled. NECK: Supple. CHEST: Clear to auscultation. No respiratory distress. HEART: Regular rate and rhythm. No murmur heard. Normal peripheral pulses. EXTREMITIES: Normal range of motion. No edema. SKIN: Warm, dry, no rash. NEURO: No focal deficits. Alert and oriented x3 <Sherly Ferrer PA-C - Last Filed: 05/02/25 02:06> Course OFFICE SERVICES SPECIALIST/PA Physician Supervision For this patient encounter, I reviewed the OFFICE SERVICES SPECIALIST or PA documentation, treatment plan, and medical decision making and had [id number] time with this patient. I performed all aspects of the MDM as documented. <Sushil Downey MD - Last Filed: 05/02/25 02:22> Vital Signs Vital signs: Vital Signs Temperature 97.6 F 05/01/25 22:32 Pulse Rate 99 05/01/25 22:32 Respiratory Rate 20 05/01/25 22:32 Blood Pressure 107/70 05/01/25 22:32 Pulse Oximetry 100 05/01/25 22:32 Oxygen Delivery Room Air 05/01/25 22:32 Temperature 97.6 F 05/01/25 22:32 Pulse Rate 90 05/02/25 02:20 Respiratory Rate 19 05/02/25 02:20 Blood Pressure 106/72 05/02/25 02:20 Pulse Oximetry 99 05/02/25 02:20 Oxygen Delivery Room Air 05/01/25 22:32 <Sherly Ferrer PA-C - Last Filed: 05/02/25 02:06> Vital Signs Temperature 97.6 F 05/01/25 22:32 Pulse Rate 99 05/01/25 22:32 Respiratory Rate 20 05/01/25 22:32 Blood Pressure 107/70 05/01/25 22:32 Pulse Oximetry 100 05/01/25 22:32 Oxygen Delivery Room Air 05/01/25 22:32 Temperature 97.6 F 05/01/25 22:32 Pulse Rate 90 05/02/25 02:20 Respiratory Rate 19 05/02/25 02:20 Blood Pressure 106/72 05/02/25 02:20 Pulse Oximetry 99 05/02/25 02:20 Oxygen Delivery Room Air 05/01/25 22:32 <uSshil Downey MD - Last Filed: 05/02/25 02:22> Procedures Laceration Laceration 1: Date: 05/02/25 <Sherly Ferrer PA-C - Last Filed: 05/02/25 02:06> Time: 01:56 <MEAGHAN Rush Last Filed: 05/02/25 02:06> Site: other (ear) <MEAGHAN Rush Last Filed: 05/02/25 02:06> Side (If applicable): right <MEAGHAN Rush Last Filed: 05/02/25 02:06> Size (cm): 1 <MEAGHAN Rush Last Filed: 05/02/25 02:06> Description: linear <MEAGHAN Rush Last Filed: 05/02/25 02:06> Depth: simple, single layer <MEAGHAN Rush Last Filed: 05/02/25 02:06> Local Anesthetic: lidocaine 1% <MEAGHAN Rush Last Filed: 05/02/25 02:06> Amount of anesthesia used (mL): 10 <MEAGHAN Rush Last Filed: 05/02/25 02:06> Pre-repair: wound explored, irrigated and irrigated extensively <MEAGHAN Rush Last Filed: 05/02/25 02:06> ====== Skin Level ======: Skin layer closed with: vicryl <MEAGHAN Rush Last Filed: 05/02/25 02:06> Size (cm): 5-0 <MEAGHAN Rush Last Filed: 05/02/25 02:06> Number of sutures: 5 <MEAGHAN Rush Last Filed: 05/02/25 02:06> Technique: simple, interrupted <MEAGHAN Rush Filed: 05/02/25 02:06> ====== Subcutaneous Layer ======: ====== Muscle Layer ======: ====== Tendon Layer ======: Laceration 2: Date: 05/02/25 <MEAGHAN Rush Last Filed: 05/02/25 02:06> Time: 01:57 <MEAGHAN Rush Filed: 05/02/25 02:06> Site: other (ear) <MEAGHAN Rush Filed: 05/02/25 02:06> Side (If applicable): right <MEAGHAN Rush Filed: 05/02/25 02:06> Size (cm): 1.5 <MEAGHAN Rush Last Filed: 05/02/25 02:06> Description: linear <MEAGHAN Rush Last Filed: 05/02/25 02:06> Depth: simple, single layer <MEAGHAN Rush Last Filed: 05/02/25 02:06> Pre-repair: wound explored, irrigated and irrigated extensively <MEAGHAN Rush Filed: 05/02/25 02:06> ====== Skin Level ======: Skin layer closed with: vicryl <MEAGHAN Rush Filed: 05/02/25 02:06> Size (cm): 5-0 <MEAGHAN Rush Filed: 05/02/25 02:06> Number of sutures: 4 <MEAGHAN Rush Filed: 05/02/25 02:06> Technique: simple, interrupted <MEAGHAN Rush Last Filed: 05/02/25 02:06> ====== Subcutaneous Layer ======: ====== Muscle Layer ======: ====== Tendon Layer ======: MDM - Wound/Laceration MDM Narrative Medical decision making narrative: 29-year-old female presents emergency department for a laceration to her right ear that occurred prior to arrival. See HPI for further history. Vital signs are stable. Exam is notable for the above. Auricle block and lacerations repaired with good approximation. Patient was started on ciprofloxacin empirically given cartilage involvement and given follow-up closely with ENT. She was given wound care and strict ED return precautions. She is agreeable with the plan verbalized understanding. Discharged in stable condition. <Sherly Ferrer PA-C - Last Filed: 05/02/25 02:06> Discharge Plan Discharge Clinical Impression: Laceration of ear Qualifiers: Encounter type: initial encounter Laterality: right Qualified Code(s): S01.311A - Laceration without foreign body of right ear, initial encounter <MEAGHAN Rush Last Filed: 05/02/25 02:06> Patient Disposition: Home <MEAGHAN Rush Last Filed: 05/02/25 02:06> Condition: Stable <MEAGHAN Rush Last Filed: 05/02/25 02:06> Instructions: Antibiotic Form, Laceration (ED) <MEAGHAN Rush Last Filed: 05/02/25 02:06> Additional Instructions: Please take the antibiotics as directed. Follow-up closely with the ENT doctor in the next 1-2 days. Return to the emergency department if you develop a fever, surrounding redness, drainage or other concerning symptoms. Please keep the wounds clean and dry. <Sehrly Ferrer PA-C - Last Filed: 05/02/25 02:06> Patient Language: Setswana <MEAGHAN Rush Last Filed: 05/02/25 02:06> Prescriptions: New ciprofloxacin HCl 500 mg tablet 500 mg PO Q12H Qty: 10 0RF No Action naproxen 500 mg tablet 500 mg PO BID PRN (Reason: pain) Qty: 14 0RF Nexplanon 68 mg implant 1 implant subdermal ONCE Rx Instructions: as a single dose <Sherly Ferrer PA-C - Last Filed: 05/02/25 02:06> Follow-up/Referrals: Virgilio Selby MD [Physician] - Ynes Mosquera APRN [Primary Care Provider] - <Sherly Ferrer PA-C - Last Filed: 05/02/25 02:06>
[2025-05-02 02:01] VITALS: BP 106/72; PULSE 90; RESP 19; O2SAT 99
[2025-05-02] MEDS: CIPROFLOXACIN 500 MG TAB PO (02:06)
[2025-05-02 02:20] VITALS: BP 106/72; PULSE 90; RESP 19; O2SAT 99
== END 2025-05-02 02:21 | disposition home or self-care (01) ==
PROVIDERS: Emergency Provider Physician Assistant; PCP Nurse Practitioner Family
DX: S01.311A Laceration without foreign body of right ear, initial encounter (principal); W01.198A Fall on same level from slipping, tripping and stumbling with subsequent striking against other object, initial encounter; F17.210 Nicotine dependence, cigarettes, uncomplicated
CPT/HCPCS: 12011; 99283; A9270; J2003

== ENCOUNTER 2025-05-08 16:00 | Outpatient (NON) | payer OTHER, SELFPAY ==
[2025-05-08 16:36] LABS: Add Urine Microscopic? YES; Appearance Urine Clear (Clear); Glucose Urine UA Negative (Negative); Leukocyte Esterase Ur Negative LEU/UL (Negative); Nitrate Urine Negative (Negative); Specific Grav Ur 1.015 (1.010-1.020)
== END 2025-05-08 16:01 | disposition home or self-care (01) ==
LOC: CHSLAB 16:03
PROVIDERS: PCP Nurse Practitioner Family; Visit Provider Nurse Practitioner Family
DX: R82.90 Unspecified abnormal findings in urine (principal)
CPT/HCPCS: 81001; 87798